=== PATIENT | female | born 1950 | race Two or more races ===

== ENCOUNTER 2019-12-02 13:46 | Inpatient (IN) | payer OTHER ==
[~2019-12-02] VITALS: Ht 157.5 cm; Wt 71.7 kg
== END 2019-12-10 18:21 | disposition home or self-care (01) | DRG 331 ==
LOC: O/R 12-07 06:26 → SURG 12-07 06:26 → SURH 12-07 07:00 → SURG 12-07 19:49
PROVIDERS: ADMIT Colon & Rectal Surgery; ATTEND Colon & Rectal Surgery
PROC: 07TB4ZZ Resection of Mesenteric Lymphatic, Percutaneous Endoscopic Approach (ICD-10-PCS; 2019-12-07)
PROC: 07TC4ZZ Resection of Pelvis Lymphatic, Percutaneous Endoscopic Approach (ICD-10-PCS; 2019-12-07)
PROC: 0DJD8ZZ Inspection of Lower Intestinal Tract, Via Natural or Artificial Opening Endoscopic (ICD-10-PCS; 2019-12-07)
PROC: 0DTN4ZZ Resection of Sigmoid Colon, Percutaneous Endoscopic Approach (ICD-10-PCS; principal; 2019-12-07 07:00)
DX: C20 Malignant neoplasm of rectum (principal)

== ENCOUNTER 2019-12-06 05:56 | Day surgery (SDC) | payer OTHER | END 2019-12-06 15:45 | disposition home or self-care (01) | LOC: AMB-ENDOS 05:56 → ADM 08:30 → AMB-ENDOS 08:30 | PROVIDERS: ATTEND Colon & Rectal Surgery | DX: C20 Malignant neoplasm of rectum (principal); K64.1 Second degree hemorrhoids ==

== ENCOUNTER 2020-01-18 06:05 | Day surgery (SDC) | payer OTHER | END 2020-01-18 11:10 | disposition home or self-care (01) | LOC: CIR.AMB 06:05 | PROVIDERS: ATTEND Colon & Rectal Surgery | DX: C20 Malignant neoplasm of rectum (principal); Z20.828 Contact with and (suspected) exposure to other viral communicable diseases | CPT/HCPCS: 36561; C1751 ==

== ENCOUNTER 2020-02-12 09:41 | Outpatient (CLI) | payer OTHER | END 2020-02-12 15:00 | disposition home or self-care (01) | LOC: LAB 09:41 | PROVIDERS: ATTEND Internal Medicine | DX: N20.0 Calculus of kidney (principal) ==

== ENCOUNTER → 2020-02-26 08:34 | Outpatient (CLI) | payer OTHER | END | disposition home or self-care (01) | LOC: LAB 08:34 | PROVIDERS: ATTEND Internal Medicine | DX: C20 Malignant neoplasm of rectum (principal) ==

== ENCOUNTER 2020-03-18 08:38 | Outpatient (CLI) | payer OTHER | END 2020-03-18 08:42 | disposition home or self-care (01) | LOC: LAB 08:38 | PROVIDERS: ATTEND Internal Medicine | DX: C20 Malignant neoplasm of rectum (principal) ==

== ENCOUNTER → 2020-03-25 07:51 | Outpatient (CLI) | payer OTHER | END | disposition home or self-care (01) | LOC: LAB 07:51 | PROVIDERS: ATTEND Internal Medicine | DX: C20 Malignant neoplasm of rectum (principal) ==

== ENCOUNTER 2020-04-08 09:14 | Outpatient (CLI) | payer OTHER | END 2020-04-08 09:20 | disposition home or self-care (01) | LOC: LAB 09:14 | PROVIDERS: ATTEND Internal Medicine | DX: C20 Malignant neoplasm of rectum (principal) ==

== ENCOUNTER → 2020-04-22 08:43 | Outpatient (CLI) | payer OTHER | END | disposition home or self-care (01) | LOC: LAB 08:43 | PROVIDERS: ATTEND Internal Medicine | DX: C20 Malignant neoplasm of rectum (principal) ==

== ENCOUNTER 2020-05-01 10:42 | Outpatient (CLI) | payer OTHER | END 2020-05-01 10:50 | disposition home or self-care (01) | LOC: LAB 10:42 | PROVIDERS: ATTEND Internal Medicine | DX: C20 Malignant neoplasm of rectum (principal) ==

== ENCOUNTER → 2020-05-15 09:46 | Outpatient (CLI) | payer OTHER | END | disposition home or self-care (01) | LOC: LAB 09:46 | PROVIDERS: ATTEND Internal Medicine | DX: C20 Malignant neoplasm of rectum (principal) ==

== ENCOUNTER 2020-06-05 09:54 | Outpatient (CLI) | payer OTHER | END 2020-06-05 10:26 | disposition home or self-care (01) | LOC: LAB 09:54 | PROVIDERS: ATTEND Internal Medicine Infectious Disease | DX: C20 Malignant neoplasm of rectum (principal) ==

== ENCOUNTER 2020-06-19 09:57 | Outpatient (CLI) | payer OTHER | END 2020-06-19 10:01 | disposition home or self-care (01) | LOC: LAB 09:57 | PROVIDERS: ATTEND Internal Medicine | DX: C20 Malignant neoplasm of rectum (principal) ==

== ENCOUNTER 2020-06-26 09:39 | Outpatient (CLI) | payer OTHER | END 2020-06-26 09:49 | disposition home or self-care (01) | LOC: LAB 09:39 | PROVIDERS: ATTEND Internal Medicine | DX: C20 Malignant neoplasm of rectum (principal) ==

== ENCOUNTER 2020-07-03 09:54 | Outpatient (CLI) | payer OTHER | END 2020-07-03 09:58 | disposition home or self-care (01) | LOC: LAB 09:54 | PROVIDERS: ATTEND Internal Medicine | DX: C20 Malignant neoplasm of rectum (principal) ==

== ENCOUNTER 2020-07-17 10:41 | Outpatient (CLI) | payer OTHER | END 2020-07-17 10:46 | disposition home or self-care (01) | LOC: LAB 10:41 | PROVIDERS: ATTEND Internal Medicine | DX: C20 Malignant neoplasm of rectum (principal); D64.89 Other specified anemias ==

== ENCOUNTER 2020-07-24 09:18 | Outpatient (CLI) | payer OTHER | END 2020-07-24 09:23 | disposition home or self-care (01) | LOC: LAB 09:18 | PROVIDERS: ATTEND Internal Medicine | DX: C20 Malignant neoplasm of rectum (principal) ==

== ENCOUNTER 2020-07-31 10:15 | Outpatient (CLI) | payer OTHER | END 2020-07-31 10:26 | disposition home or self-care (01) | LOC: LAB 10:15 | PROVIDERS: ATTEND Internal Medicine | DX: C20 Malignant neoplasm of rectum (principal) ==

== ENCOUNTER → 2020-08-14 09:35 | Outpatient (CLI) | payer OTHER | END | disposition home or self-care (01) | LOC: LAB 09:35 | PROVIDERS: ATTEND Internal Medicine | DX: C20 Malignant neoplasm of rectum (principal) ==

== ENCOUNTER 2020-08-21 10:46 | Outpatient (CLI) | payer OTHER | END 2020-08-21 10:47 | disposition home or self-care (01) | LOC: LAB 10:46 | PROVIDERS: ATTEND Internal Medicine | DX: C20 Malignant neoplasm of rectum (principal) ==

== ENCOUNTER 2020-09-04 10:12 | Outpatient (CLI) | payer OTHER | END 2020-09-04 10:13 | disposition home or self-care (01) | LOC: LAB 10:12 | PROVIDERS: ATTEND Internal Medicine | DX: C20 Malignant neoplasm of rectum (principal) ==

== ENCOUNTER 2020-09-18 10:57 | Outpatient (CLI) | payer OTHER | END 2020-09-18 11:00 | disposition home or self-care (01) | LOC: LAB 10:57 | PROVIDERS: ATTEND Internal Medicine | DX: C20 Malignant neoplasm of rectum (principal) ==

== ENCOUNTER → 2020-09-25 10:02 | Outpatient (CLI) | payer OTHER | END | disposition home or self-care (01) | LOC: LAB 10:02 | PROVIDERS: ATTEND Internal Medicine | DX: C20 Malignant neoplasm of rectum (principal) ==

== ENCOUNTER 2020-10-30 10:59 | Outpatient (CLI) | payer OTHER | END 2020-10-30 12:44 | disposition home or self-care (01) | LOC: LAB 10:59 | PROVIDERS: ATTEND Internal Medicine | DX: C20 Malignant neoplasm of rectum (principal) ==

== ENCOUNTER 2020-11-13 10:32 | Outpatient (CLI) | payer OTHER | END 2020-11-13 10:36 | disposition home or self-care (01) | LOC: LAB 10:32 | PROVIDERS: ATTEND Internal Medicine | DX: C20 Malignant neoplasm of rectum (principal) ==

== ENCOUNTER 2020-11-27 11:19 | Outpatient (CLI) | payer OTHER | END 2020-11-27 11:21 | disposition home or self-care (01) | LOC: LAB 11:19 | PROVIDERS: ATTEND Internal Medicine | DX: C20 Malignant neoplasm of rectum (principal) ==

== ENCOUNTER → 2020-12-16 08:31 | Outpatient (CLI) | payer OTHER | END | disposition home or self-care (01) | LOC: LAB 08:31 | PROVIDERS: ATTEND Internal Medicine | DX: C20 Malignant neoplasm of rectum (principal) ==

== ENCOUNTER 2020-12-23 09:52 | Outpatient (CLI) | payer OTHER | END 2020-12-23 18:00 | disposition home or self-care (01) | LOC: LAB 09:52 | PROVIDERS: ATTEND Internal Medicine | DX: C20 Malignant neoplasm of rectum (principal) ==

== ENCOUNTER 2020-12-30 09:47 | Outpatient (CLI) | payer OTHER | END 2020-12-30 09:52 | disposition home or self-care (01) | LOC: LAB 09:47 | DX: C20 Malignant neoplasm of rectum (principal) ==

== ENCOUNTER 2021-01-06 10:05 | Outpatient (CLI) | payer OTHER | END 2021-01-06 10:08 | disposition home or self-care (01) | LOC: LAB 10:05 | PROVIDERS: ATTEND Internal Medicine | DX: C20 Malignant neoplasm of rectum (principal) ==

== ENCOUNTER 2021-01-13 08:46 | Outpatient (CLI) | payer OTHER | END 2021-01-13 08:52 | disposition home or self-care (01) | LOC: LAB 08:46 | DX: C20 Malignant neoplasm of rectum (principal) ==

== ENCOUNTER 2021-01-20 09:05 | Outpatient (CLI) | payer OTHER | END 2021-01-20 09:08 | disposition home or self-care (01) | LOC: LAB 09:05 | PROVIDERS: ATTEND Internal Medicine | DX: C20 Malignant neoplasm of rectum (principal) ==

== ENCOUNTER 2021-01-27 10:19 | Outpatient (CLI) | payer OTHER | END 2021-01-27 12:25 | disposition home or self-care (01) | LOC: LAB 10:19 | PROVIDERS: ATTEND Internal Medicine | DX: C20 Malignant neoplasm of rectum (principal) ==

== ENCOUNTER 2021-02-10 08:45 | Outpatient (CLI) | payer OTHER | END 2021-02-10 08:46 | disposition home or self-care (01) | LOC: LAB 08:45 | PROVIDERS: ATTEND Internal Medicine | DX: C20 Malignant neoplasm of rectum (principal) ==

== ENCOUNTER 2021-03-03 09:50 | Outpatient (CLI) | payer OTHER | END 2021-03-03 09:53 | disposition home or self-care (01) | LOC: LAB 09:50 | PROVIDERS: ATTEND Internal Medicine | DX: C20 Malignant neoplasm of rectum (principal) ==

== ENCOUNTER → 2021-03-31 09:34 | Outpatient (CLI) | payer OTHER | END | disposition home or self-care (01) | LOC: LAB 09:34 | PROVIDERS: ATTEND Internal Medicine | DX: C20 Malignant neoplasm of rectum (principal) ==

== ENCOUNTER 2021-04-21 09:13 | Outpatient (CLI) | payer OTHER | END 2021-04-21 09:14 | disposition home or self-care (01) | LOC: LAB 09:13 | PROVIDERS: ATTEND Internal Medicine | DX: N39.0 Urinary tract infection, site not specified (principal); C20 Malignant neoplasm of rectum; C78.7 Secondary malignant neoplasm of liver and intrahepatic bile duct ==

== ENCOUNTER 2021-06-04 10:24 | Outpatient (CLI) | payer OTHER | END 2021-06-04 10:25 | disposition home or self-care (01) | LOC: LAB 10:24 | DX: N18.32 Chronic kidney disease, stage 3b (principal); R80.9 Proteinuria, unspecified; D63.1 Anemia in chronic kidney disease; E55.9 Vitamin D deficiency, unspecified; E78.2 Mixed hyperlipidemia; E79.0 Hyperuricemia without signs of inflammatory arthritis and tophaceous disease; E11.22 Type 2 diabetes mellitus with diabetic chronic kidney disease; N25.81 Secondary hyperparathyroidism of renal origin; R31.9 Hematuria, unspecified; E03.8 Other specified hypothyroidism; Z94.0 Kidney transplant status ==

== ENCOUNTER → 2021-07-17 08:52 | Outpatient (CLI) | payer OTHER | END | disposition home or self-care (01) | LOC: LAB 08:52 | PROVIDERS: ATTEND Internal Medicine | DX: C20 Malignant neoplasm of rectum (principal); C78.02 Secondary malignant neoplasm of left lung; E55.9 Vitamin D deficiency, unspecified ==

== ENCOUNTER 2021-07-23 10:08 | Outpatient (CLI) | payer OTHER | END 2021-07-23 10:14 | disposition home or self-care (01) | LOC: LAB 10:08 | PROVIDERS: ATTEND Internal Medicine | DX: C20 Malignant neoplasm of rectum (principal); C78.02 Secondary malignant neoplasm of left lung; E55.9 Vitamin D deficiency, unspecified; R11.0 Nausea ==

== ENCOUNTER 2021-08-07 10:18 | Outpatient (CLI) | payer OTHER | END 2021-08-07 10:22 | disposition home or self-care (01) | LOC: LAB 10:18 | PROVIDERS: ATTEND Internal Medicine | DX: C20 Malignant neoplasm of rectum (principal); C78.02 Secondary malignant neoplasm of left lung; E55.9 Vitamin D deficiency, unspecified; R11.0 Nausea ==

== ENCOUNTER 2021-08-13 09:22 | Outpatient (CLI) | payer OTHER | END 2021-08-13 13:43 | disposition home or self-care (01) | LOC: LAB 09:22 | PROVIDERS: ATTEND Internal Medicine | DX: Z51.11 Encounter for antineoplastic chemotherapy (principal); C20 Malignant neoplasm of rectum; C78.02 Secondary malignant neoplasm of left lung; E55.9 Vitamin D deficiency, unspecified; R11.0 Nausea; K29.70 Gastritis, unspecified, without bleeding; D70.9 Neutropenia, unspecified ==

== ENCOUNTER 2021-08-27 10:04 | Outpatient (CLI) | payer OTHER | END 2021-08-27 10:05 | disposition home or self-care (01) | LOC: LAB 10:04 | PROVIDERS: ATTEND Internal Medicine | DX: Z51.11 Encounter for antineoplastic chemotherapy (principal); C20 Malignant neoplasm of rectum; C78.02 Secondary malignant neoplasm of left lung; E55.9 Vitamin D deficiency, unspecified; R11.0 Nausea; K29.70 Gastritis, unspecified, without bleeding; D70.9 Neutropenia, unspecified ==

== ENCOUNTER 2021-09-04 09:10 | Outpatient (CLI) | payer OTHER | END 2021-09-04 09:11 | disposition home or self-care (01) | LOC: LAB 09:10 | PROVIDERS: ATTEND Internal Medicine | DX: Z51.11 Encounter for antineoplastic chemotherapy (principal); C20 Malignant neoplasm of rectum; C78.02 Secondary malignant neoplasm of left lung; E55.9 Vitamin D deficiency, unspecified; R11.0 Nausea; K29.70 Gastritis, unspecified, without bleeding; D70.9 Neutropenia, unspecified ==

== ENCOUNTER 2021-09-18 09:13 | Outpatient (CLI) | payer OTHER | END 2021-09-18 09:22 | disposition home or self-care (01) | LOC: LAB 09:13 | PROVIDERS: ATTEND Internal Medicine | DX: Z51.11 Encounter for antineoplastic chemotherapy (principal); C20 Malignant neoplasm of rectum; C78.02 Secondary malignant neoplasm of left lung; E55.9 Vitamin D deficiency, unspecified; R11.0 Nausea; K29.70 Gastritis, unspecified, without bleeding; D70.9 Neutropenia, unspecified ==

== ENCOUNTER → 2021-09-26 08:58 | Outpatient (CLI) | payer OTHER | END | disposition home or self-care (01) | LOC: LAB 08:58 | DX: R80.9 Proteinuria, unspecified (principal); E11.22 Type 2 diabetes mellitus with diabetic chronic kidney disease; N18.32 Chronic kidney disease, stage 3b; D63.1 Anemia in chronic kidney disease; E55.9 Vitamin D deficiency, unspecified; E78.2 Mixed hyperlipidemia; E79.0 Hyperuricemia without signs of inflammatory arthritis and tophaceous disease; N25.81 Secondary hyperparathyroidism of renal origin; R31.9 Hematuria, unspecified; E03.9 Hypothyroidism, unspecified; Z94.0 Kidney transplant status; N28.1 Cyst of kidney, acquired ==

== ENCOUNTER 2021-10-02 08:48 | Outpatient (CLI) | payer OTHER | END 2021-10-02 08:54 | disposition home or self-care (01) | LOC: LAB 08:48 | PROVIDERS: ATTEND Internal Medicine | DX: Z51.11 Encounter for antineoplastic chemotherapy (principal); C20 Malignant neoplasm of rectum; C78.02 Secondary malignant neoplasm of left lung; E55.9 Vitamin D deficiency, unspecified; R11.0 Nausea; K29.70 Gastritis, unspecified, without bleeding; D70.9 Neutropenia, unspecified ==

== ENCOUNTER 2021-10-09 10:04 | Outpatient (CLI) | payer OTHER | END 2021-10-09 10:05 | disposition home or self-care (01) | LOC: LAB 10:04 | PROVIDERS: ATTEND Internal Medicine | DX: Z51.11 Encounter for antineoplastic chemotherapy (principal); C20 Malignant neoplasm of rectum; C78.02 Secondary malignant neoplasm of left lung; E55.9 Vitamin D deficiency, unspecified; R11.0 Nausea; K29.70 Gastritis, unspecified, without bleeding; D70.9 Neutropenia, unspecified ==

== ENCOUNTER 2021-10-22 10:18 | Outpatient (CLI) | payer OTHER | END 2021-10-22 10:24 | disposition home or self-care (01) | LOC: LAB 10:18 | PROVIDERS: ATTEND Internal Medicine | DX: Z51.11 Encounter for antineoplastic chemotherapy (principal); C20 Malignant neoplasm of rectum; C78.02 Secondary malignant neoplasm of left lung; E55.9 Vitamin D deficiency, unspecified; R11.0 Nausea; K29.70 Gastritis, unspecified, without bleeding; D70.9 Neutropenia, unspecified ==

== ENCOUNTER 2021-11-06 10:53 | Outpatient (CLI) | payer OTHER | END 2021-11-06 10:57 | disposition home or self-care (01) | LOC: LAB 10:53 | PROVIDERS: ATTEND Internal Medicine | DX: C20 Malignant neoplasm of rectum (principal); C78.02 Secondary malignant neoplasm of left lung; E55.9 Vitamin D deficiency, unspecified; R11.0 Nausea; K29.70 Gastritis, unspecified, without bleeding; Z51.11 Encounter for antineoplastic chemotherapy; D70.9 Neutropenia, unspecified ==

== ENCOUNTER 2021-11-27 11:14 | Outpatient (CLI) | payer OTHER | END 2021-11-27 11:15 | disposition home or self-care (01) | LOC: LAB 11:14 | PROVIDERS: ATTEND Colon & Rectal Surgery | DX: C20 Malignant neoplasm of rectum (principal); Z85.048 Personal history of other malignant neoplasm of rectum, rectosigmoid junction, and anus; K92.1 Melena ==

== ENCOUNTER → 2021-11-28 12:20 | Outpatient (CLI) | payer OTHER | END | disposition home or self-care (01) | LOC: LAB 12:20 | PROVIDERS: ATTEND Colon & Rectal Surgery | DX: Z20.818 Contact with and (suspected) exposure to other bacterial communicable diseases (principal); Z20.822 Contact with and (suspected) exposure to COVID-19 ==

== ENCOUNTER 2022-01-03 11:00 | Outpatient (CLI) | payer OTHER | END 2022-01-03 11:04 | disposition home or self-care (01) | LOC: LAB 11:00 | DX: Z51.11 Encounter for antineoplastic chemotherapy (principal); C20 Malignant neoplasm of rectum; C78.02 Secondary malignant neoplasm of left lung; E55.9 Vitamin D deficiency, unspecified; R11.0 Nausea; K29.70 Gastritis, unspecified, without bleeding; D70.9 Neutropenia, unspecified ==

== ENCOUNTER 2022-01-14 09:18 | Outpatient (CLI) | payer OTHER | END 2022-01-14 09:21 | disposition home or self-care (01) | LOC: LAB 09:18 | DX: Z51.11 Encounter for antineoplastic chemotherapy (principal); C20 Malignant neoplasm of rectum; C78.02 Secondary malignant neoplasm of left lung; E55.9 Vitamin D deficiency, unspecified; R11.0 Nausea; K29.70 Gastritis, unspecified, without bleeding; D70.9 Neutropenia, unspecified ==

== ENCOUNTER 2022-02-05 09:03 | Outpatient (CLI) | payer OTHER | END 2022-02-05 09:04 | disposition home or self-care (01) | LOC: LAB 09:03 | PROVIDERS: ATTEND Internal Medicine | DX: Z51.11 Encounter for antineoplastic chemotherapy (principal); C20 Malignant neoplasm of rectum; R11.0 Nausea; C78.02 Secondary malignant neoplasm of left lung; E55.9 Vitamin D deficiency, unspecified; K29.70 Gastritis, unspecified, without bleeding; D70.9 Neutropenia, unspecified ==

== ENCOUNTER → 2022-02-21 09:32 | Outpatient (CLI) | payer OTHER | END | disposition home or self-care (01) | LOC: LAB 09:32 | PROVIDERS: ATTEND Internal Medicine | DX: C19 Malignant neoplasm of rectosigmoid junction (principal); C20 Malignant neoplasm of rectum; C78.7 Secondary malignant neoplasm of liver and intrahepatic bile duct ==

== ENCOUNTER 2022-05-07 08:34 | Outpatient (CLI) | payer OTHER | END 2022-05-07 08:37 | disposition home or self-care (01) | LOC: LAB 08:34 | PROVIDERS: ATTEND Internal Medicine | DX: C20 Malignant neoplasm of rectum (principal); C78.02 Secondary malignant neoplasm of left lung ==

== ENCOUNTER → 2022-08-06 08:54 | Outpatient (CLI) | payer OTHER | END | disposition home or self-care (01) | LOC: LAB 08:54 | PROVIDERS: ATTEND Internal Medicine | DX: C20 Malignant neoplasm of rectum (principal) ==

== ENCOUNTER 2022-10-29 08:05 | Outpatient (CLI) | payer OTHER | END 2022-10-29 08:09 | disposition home or self-care (01) | LOC: LAB 08:05 | PROVIDERS: ATTEND Internal Medicine | DX: C20 Malignant neoplasm of rectum (principal); C78.02 Secondary malignant neoplasm of left lung; C78.7 Secondary malignant neoplasm of liver and intrahepatic bile duct ==

== ENCOUNTER 2023-01-28 08:29 | Outpatient (CLI) | payer OTHER | END 2023-01-28 08:32 | disposition home or self-care (01) | LOC: LAB 08:29 | PROVIDERS: ATTEND Surgery | DX: C20 Malignant neoplasm of rectum (principal); K92.1 Melena; Z85.048 Personal history of other malignant neoplasm of rectum, rectosigmoid junction, and anus ==

== ENCOUNTER 2023-02-10 08:07 | Outpatient (CLI) | payer OTHER | END 2023-02-10 08:09 | disposition home or self-care (01) | LOC: LAB 08:07 | PROVIDERS: ATTEND Internal Medicine | DX: C20 Malignant neoplasm of rectum (principal); C78.02 Secondary malignant neoplasm of left lung; E55.9 Vitamin D deficiency, unspecified; E03.9 Hypothyroidism, unspecified; E78.5 Hyperlipidemia, unspecified ==

== ENCOUNTER → 2023-06-16 10:46 | Outpatient (CLI) | payer OTHER ==
[2023-06-16 12:37] LABS: ALBUMIN 3.6 gm/dL (3.4-5.0); BILIRUBIN TOTAL 0.8 mg/dL (0.3-1.2); CALCIUM 9.5 mg/dL (8.5-10.1); CREATININE SERUM 1.32 mg/dL (0.55-1.02); GFR 39.34; GLOBULINA 3.5 G/DL (2.4-3.5); POTASSIUM 3.87 mEq/L (3.5-5.1); TOTAL PROTEIN 7.1 gm/dL (6.4-8.2)
[2023-06-16 12:50] LABS: HEMATOCRIT 40.3 % (36.0-45.00); HEMOGLOBIN 13.3 g/dL (12.0-15.00); MEAN CORPUSCULAR HEMOGLOBIN 30.3 pg (27.00-32.0); RED BLOOD COUNT 4.38 M/uL (4.00-6.00); RED CELL DISTRIBUTION WIDTH 14.4 % (11.5-14.5)
[2023-06-16 12:52] LABS: PLATELET COUNT 122 K/uL (150-450)
== END | disposition home or self-care (01) ==
LOC: LAB 10:46
PROVIDERS: ATTEND Internal Medicine
DX: C20 Malignant neoplasm of rectum (principal)

== ENCOUNTER 2024-02-09 08:21 | Outpatient (CLI) | payer OTHER ==
[2024-02-09 09:00] LABS: HEMATOCRIT 40.9 % (36.0-45.00); HEMOGLOBIN 13.4 g/dL (12.0-15.00); MEAN CELL VOLUME 91.8 fL (80.00-100.00); MEAN CORPUSCULAR HEMOGLOBIN 30.2 pg (27.00-32.0); MEAN CORPUSCULAR HGB CONC 32.9 g/dl (32.0-36.0); PLATELET COUNT 142 K/uL (150-450); RED BLOOD COUNT 4.45 M/uL (4.00-6.00); RED CELL DISTRIBUTION WIDTH 14.2 % (11.5-14.5)
[2024-02-09 10:21] LABS: ALBUMIN 3.7 gm/dL (3.4-5.0); BILIRUBIN TOTAL 0.57 mg/dL (0.3-1.2); CALCIUM 9.6 mg/dL (8.5-10.1); CREATININE SERUM 1.19 mg/dL (0.55-1.02); GFR 44.34; GLOBULINA 3.7 G/DL (2.4-3.5); POTASSIUM 4.08 mEq/L (3.5-5.1); TOTAL PROTEIN 7.4 gm/dL (6.4-8.2)
== END 2024-02-09 08:24 | disposition home or self-care (01) ==
LOC: LAB 08:21
PROVIDERS: ATTEND Internal Medicine
DX: C20 Malignant neoplasm of rectum (principal); C78.02 Secondary malignant neoplasm of left lung

== ENCOUNTER 2024-08-25 05:25 | Day surgery (SDC) | payer OTHER ==
[2024-08-16 10:47] VITALS: BP 135/80
[2024-08-16 11:04] LABS: PH,URINE 5.5 (5.0-8.0); URINE APPEARANCE Clear; URINE BILIRRUBIN Negative (NEGATIVE); URINE BLOOD Negative; URINE COLOR Yellow; URINE GLUCOSE Negative (NEGATIVE); URINE KETONE Negative (NEGATIVE); URINE LEUKOCYTE Negative; URINE NITRATE Negative; URINE PROTEIN Negative (NEGATIVE); URINE UROBILINOGEN 0.2 E.U./dl
[2024-08-16 11:09] LABS: URINE BACTERIA 86.8 uL (0.0-1933); URINE EPITHELIAL CELLS 5.3 uL (0.0-38.8); URINE RBC 14.1 uL (0.0-20.8)
[2024-08-16 11:13] LABS: HEMATOCRIT 43.2 % (36.0-45.00); HEMOGLOBIN 14.1 g/dL (12.0-15.00); MEAN CELL VOLUME 92.5 fL (80.00-100.00); MEAN CORPUSCULAR HEMOGLOBIN 30.2 pg (27.00-32.0); MEAN CORPUSCULAR HGB CONC 32.6 g/dl (32.0-36.0); PLATELET COUNT 149 K/uL (150-450); RED BLOOD COUNT 4.67 M/uL (4.00-6.00); RED CELL DISTRIBUTION WIDTH 14.4 % (11.5-14.5)
[2024-08-16 11:58] LABS: INR 0.98; PARTIAL THROMBOPLASTIN TIME 24.5 SECONDS (22.0-34.0); PROTHROMBIN TIME 10.7 SECONDS (9.0-11.5)
[2024-08-16 12:30] LABS: ALBUMIN 3.9 gm/dL (3.4-5.0); BILIRUBIN TOTAL 0.68 mg/dL (0.3-1.2); CALCIUM 9.5 mg/dL (8.5-10.1); CREATININE SERUM 1.24 mg/dL (0.55-1.02); GFR 42.17; GLOBULINA 3.7 G/DL (2.4-3.5); POTASSIUM 4.47 mEq/L (3.5-5.1); TOTAL PROTEIN 7.6 gm/dL (6.4-8.2)
[~2024-08-25] VITALS: Ht 157.5 cm; Wt 82.1 kg
[2024-08-25] MEDS ORDERED: BUPIVACAINE HCL/Mpf 0.5% 10ML VIAL ONE (07:01)
[2024-08-25] MEDS ORDERED: LIDOCAINE HCL 1%/EPINEPHRINE 20ML VIAL IJ ONE (07:01)
[2024-08-25] MEDS ORDERED: CEFAZOLIN SODIUM 1,000 MG VIAL ONE (07:02)
== END 2024-08-25 10:55 | disposition home or self-care (01) ==
LOC: CIR.AMB 05:25
PROVIDERS: ATTEND Colon & Rectal Surgery
DX: T82.594A Other mechanical complication of infusion catheter, initial encounter (principal); C20 Malignant neoplasm of rectum